=== PATIENT | female | born 1985 | race Caucasian/White ===

== ENCOUNTER 2023-07-01 13:29 | Emergency (ER) | payer OTHER ==
[~2023-07-01] VITALS: Ht 175.3 cm; Wt 88.5 kg
[2023-07-01 13:57] VITALS: BP 121/84
[2023-07-01] MEDS ORDERED: IBUP600 PO (15:29)
== END 2023-07-01 15:48 | disposition home or self-care (01) ==
LOC: ER 13:29
DX: S16.1XXA Strain of muscle, fascia and tendon at neck level, initial encounter (principal); S20.219A Contusion of unspecified front wall of thorax, initial encounter; M25.512 Pain in left shoulder; M25.562 Pain in left knee; V48.5XXA Car driver injured in noncollision transport accident in traffic accident, initial encounter; Y92.410 Unspecified street and highway as the place of occurrence of the external cause; Z88.0 Allergy status to penicillin
CPT/HCPCS: 71046; 99284-25; A9270

== ENCOUNTER → 2023-12-09 | Outpatient (CLI) | payer OTHER ==
[~2023-12-09] MED LIST: EUTHYROX50 MCG PO; IBUP600 PO; LEVETIRACETAM50014 PO; OXYC5 PO; Tenex1 MG PO
== END | disposition home or self-care (01) ==
LOC: LAB SHORT 17:59 → LAB 17:59
DX: E03.9 Hypothyroidism, unspecified (principal)
CPT/HCPCS: 84443